=== PATIENT | male | born 1955 | race Caucasian/White ===

== ENCOUNTER 2017-04-23 19:11 | Emergency (ER) | payer BC, MEDICARE, OTHER ==
[~2017-04-23] VITALS: Ht 182.9 cm; Wt 139.0 kg
[~2017-04-23 19:11] MED LIST: ATEN50TA PO; ATOR20TA15 PO; HYDR1CAP; HYDR25TA5 PO; LISI-519 PO; OXYC1TAB35 PO; PARO40TA2 PO
[2017-04-23] MEDS ORDERED: IOHEXOL 350 MG/ML 10 ML VIAL (for RAD DIAG) IVCONTRAST ONE (19:12)
[2017-04-23 19:13] VITALS: BP 137/77; PULSE 71; RESP 20; TEMP 98.9; O2SAT 96
[2017-04-23 19:25] VITALS: BP 141/75; PULSE 67; RESP 18; O2SAT 96
[2017-04-23] MEDS ORDERED: HYDR1CAP PO (19:28)
[2017-04-23] MEDS ORDERED: SODIUM CHLOR 0.9% 1000 ML INJ 1,000 ML IV SCH (19:29)
[2017-04-23] MEDS ORDERED: MORPHINE SULFATE 4 MG/ML INJ IV PUSH ONE (19:30)
[2017-04-23] MEDS ORDERED: ONDANSETRON HCL 4 MG/2 ML VIAL IVP ONE (19:30)
[2017-04-23] MEDS ORDERED: MORPHINE SULFATE 8 MG/ML INJ IV PUSH ONE (19:45)
[2017-04-23 20:01] LABS: CHLORIDE 102 MEQ/L (98-107); POTASSIUM 3.8 MEQ/L (3.5-5.1); SODIUM (NA) 138 MEQ/L (136-145)
[2017-04-23 20:04] LABS: AUTOMATED NEUTROPHIL # 3.3 TH/MM3 (1.8-7.7); BASOPHIL % 0.4 % (0.0-2.0); EOSINOPHIL # 0.3 TH/MM3 (0-0.4); EOSINOPHIL % 4.9 % (0.0-4.0); HEMATOCRIT 38.3 % (39.0-51.0); HEMO FLAGS DIFF FINAL; LYMPH % 34.3 % (9.0-44.0); LYMPHOCYTE # 2.2 TH/MM3 (1.0-4.8); MEAN CELL VOLUME 89.6 FL (80.0-100.0); MEAN CORPUSCULAR HEMOGLOBIN 30.4 PG (27.0-34.0); MEAN CORPUSCULAR HGB CONC 33.9 % (32.0-36.0); MONO % 7.7 % (0.0-8.0); NEUT % 52.7 % (16.0-70.0); PLATELET COUNT 226 TH/MM3 (150-450); RED BLOOD COUNT 4.28 MIL/MM3 (4.50-5.90); RED CELL DISTRIBUTION WIDTH 13.4 % (11.6-17.2); WHITE BLOOD COUNT 6.3 TH/MM3 (4.0-11.0)
[2017-04-23 20:05] LABS: ANION GAP 5 MEQ/L (5-15); BICARBONATE 31.4 MEQ/L (21.0-32.0); BLOOD UREA NITROGEN 13 MG/DL (7-18)
[2017-04-23 20:06] LABS: APTT (PATIENT) 26.4 SEC (24.3-30.1); INTERNATIONAL NORMALIZED RATIO 0.9 RATIO
[2017-04-23 20:08] LABS: ALT (GPT) 38 U/L (12-78); AST (GOT) 21 U/L (15-37); GLOMERULAR FILTRATION RATE 48 ML/MIN (>89)
[2017-04-23 20:09] LABS: TOTAL BILIRUBIN ADULT 0.2 MG/DL (0.2-1.0)
[2017-04-23 20:10] LABS: ALKALINE PHOSPHATASE 57 U/L (45-117)
[2017-04-23 20:20] VITALS: BP 116/60; PULSE 64; RESP 18; O2SAT 96
--- NOTE | 2017-04-23 20:51 | PD ---
HPI . RUQ abdominal pain x 1 week. Chief Complaint: Abdominal Pain Time Seen by Provider: 19:29 Travel History International Travel<30 days: No Contact w/Intl Traveler<30days: No Traveled to known affect area: No History of Present Illness HPI Pt is a 62yo Male who presents to the ED with RUQ abdominal pain x 1wk. Pt describes the pain as "jolting or electrical" with 9/10 severity. The pain waxes and wanes. It is not exacerbated or associated with eating. The pain is localized to the RUQ and somewhat radiates laterally and posteriorly. Pt describes previous episodes of this pain and has had w/u in the past, but states that this pain that he has currently is worse. 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 Pt denies nsaid use, diarrhea, dysuria, but also mentions constipation and decreased sleep and sporadic episodes of emesis. PSurgHx is significant for cholecystectomy. He is unable to sleep due to pain. PFSH Past Medical History Arthritis: Yes Anxiety: Yes Depression: Yes Heart Rhythm Problems: No Cancer: Yes (BASAL NASAL CANCER) Cardiovascular Problems: Yes (HTN) High Cholesterol: Yes Chemotherapy: No Diabetes: Yes Patient Takes Glucophage: No Diminished Hearing: No Endocrine: No Gastrointestinal Disorders: Yes (ACID REFLUX, GASTRIC IRRITATION) Glaucoma: No Genitourinary: No Hepatitis: No Hiatal Hernia: No Hypertension: Yes Immune Disorder: No Kidney Stones: Yes Musculoskeletal: Yes (CHRONIC LOWER BACK PAIN) Neurologic: Yes (NEUROPATHY HANDS AND FEET, HX TEMPORARY PARALYSIS) Psychiatric: Yes (ANXITY/DEPRESSION) Reproductive: No Respiratory: Yes (ALLERGIES, SINUS ISSUES) Integumentary: Yes (PSORIASIS) Immunizations Current: Yes Radiation Therapy: No Thyroid Disease: No Tetanus Vaccination: > 5 Years Influenza Vaccination: No Past Surgical History Abdominal Surgery: Yes (CHOLECYSTECTOMY) AICD: No Arteriovenous Shunt: No Body Medical Devices: NONE Cardiac Surgery: No Cholecystectomy: Yes Ear Surgery: No Endocrine Surgery: No Eye Surgery: No Genitourinary Surgery: Yes (REPAIR LEFT TESTICULAR HYDROCELE) Insulin Pump: No Joint Replacement: No Neurologic Surgery: Yes (2 LUMBAR SURGERY FOR DISCS) Oral Surgery: No Pacemaker: No Thoracic Surgery: No Other Surgery: Yes (LITOTRIPSEY, HNP,right elbow,CA from face, flap surg x2) Social History Alcohol Use: No Tobacco Use: No (QUIT 1979) Substance Use: No Allergies-Medications (Allergen,Severity, Reaction): Coded Allergies: No Known Allergies (Verified Adverse Reaction, Unknown, 04/23/17) Reported Meds & Prescriptions Reported Meds & Active Scripts Active Atorvastatin (Atorvastatin Calcium) 20 Mg Tab 20 Mg PO HS Lisinopril 5 Mg Tab 5 Mg PO DAILY Hydrochlorothiazide 25 Mg Tab 25 Mg PO DAILY Paroxetine (Paroxetine HCl) 40 Mg Tab 40 Mg PO DAILY Atenolol 50 Mg Tab 50 Mg PO DAILY Reported Zohydro ER (Hydrocodone ER) 40 Mg Caper 1 Tab PO Q12HR Oxycodone-Acetaminophen 7.5-325 mg Tab 1 Tab PO Q8HR PRN Review of Systems Except as stated in HPI: all other systems reviewed are Neg Eyes: No: Diploplia, Blurred Vision, Photophobia, Drainage, Redness, Foreign Body Sensation, Pain, Tearing, Blind Spots, Visual changes, Blindness, Other HENT: No: Headaches, Vertigo, Lightheadedness, Sore Throat, Rhinitis, Rhinorrhea, Congestion, Nosebleed, Neck Stiffness, Neck Pain, Masses, Gingival Bleeding, Dental Difficulties, Ear Discharge, Earache, Other Cardiovascular: No: Chest Pain or Discomfort, Palpitations, Irregular Rhythm, Tachycardia, Diaphoresis, Syncope, Dyspnea on exertion, Varicosities, Edema, Cyanosis, Varicosities, Phlebitis, Claudication, Other Respiratory: No: Cough, Shortness of Breath, Wheezing, Sneezing, Orthopnea, Hemoptysis, Stridor, Night Sweats, Pleuritic Pain, Other Gastrointestinal: Positive: Nausea, Vomiting, Abdominal Pain, Constipation Genitourinary: No: Urgency, Frequency, Dysuria, Nocturia, Hematuria, Decreased Urinary Output, Oliguria, Hesitancy, Dribbling, Incontinence, Pelvic Pain, Flank Pain, Dyspareunia, Discharge, Dysmenorrhea, Menorrhagia, Metorrhagia, Vaginal Bleeding, Other Musculoskeletal: Positive: Myalgias, Cramping, Pain Skin: No Rash, No Itching, No Dryness, No Lumps, No Hives, No Change in Pigmentation, No Change in nails, No Alopecia, No Lesions, No Breast Lumps, No Breast Tenderness, No Breast Swelling, No Other Neurologic: Positive: Sensory Disturbance Psychiatric: No: Anxiety, Depression, Suicidal Ideations, Disorder of Thought, Mood Disorder, Substance Abuse, Homicidal Ideation, Other Endocrine: No: Heat Intolerance, Cold Intolerance, Polyuria, Polydipsia, Other Hematologic/Lymphatic: No: Easy Bruising, Lymph Node Enlargement, Other Physical Exam Narrative GENERAL: Alert, awake and oriented, moderate distress HEAD: atraumatic, normocephalic SKIN: warm, dry, good color and turgor. no signs of cyanosis or dehydration. NECK:supple w/o lymphadenopathy CV: RRR normal heart sounds RESPIRATORY: CTA bilat, no rales, wheezes, or rhonchi. ABDOMEN: TTP of RUQ and R oblique area. negative fluid wave. negative succussion splash. involuntary guarding and rebound on R side. somewhat distended abdomen. exam for organomegaly was somewhat limited due to guarding. NEURO: nonfocal. PSYCH: appropriate mood and affect. Data Data Last Documented VS Vital Signs Date Time Temp Pulse Resp B/P (MAP) Pulse Ox O2 Delivery O2 Flow Rate FiO2 04/23/17 20:20 64 18 116/60 (78) 96 Room Air 04/23/17 19:13 98.9 Orders Orders Complete Blood Count With Diff (04/23/17:29) Comprehensive Metabolic Panel (04/23/17:29) Lipase (04/23/17:29) Lactic Acid (04/23/17:29) Prothrombin Time / Inr (Pt) (04/23/17:) Act Partial Throm Time (Ptt) (04/23/17:29) Ct Abd/Pel W Iv Contrast(Rout) (04/23/17 19:29) Iv Access Insert/Monitor (04/23/17:29) Ecg Monitoring (04/23/17:) Oximetry (04/23/17:29) Morphine Inj (Morphine Inj) (04/23/17 19:30) Ondansetron Inj (Zofran Inj) (04/23/17 19:30) Sodium Chlor 0.9% 1000 Ml Inj (Ns 1000 M (04/23/17 19:29) Electrocardiogram (04/23/17:29) Troponin I (04/23/17 19:29) Morphine Inj (Morphine Inj) (04/23/17 19:45) Urinalysis - C+S If Indicated (04/23/17 20:18) Iohexol 350 Inj (Omnipaque 350 Inj) (04/23/17 19:12) Hydromorphone Pf Inj (Dilaudid Pf Inj) (04/23/17 21:15) Labs Laboratory Tests Test 04/23/17 19:40 04/23/17 20:45 White Blood Count 6.3 TH/MM3 Red Blood Count 4.28 MIL/MM3 Hemoglobin 13.0 GM/DL Hematocrit 38.3 % Mean Corpuscular Volume 89.6 FL Mean Corpuscular Hemoglobin 30.4 PG Mean Corpuscular Hemoglobin Concent 33.9 % Red Cell Distribution Width 13.4 % Platelet Count 226 TH/MM3 Mean Platelet Volume 8.0 FL Neutrophils (%) (Auto) 52.7 % Lymphocytes (%) (Auto) 34.3 % Monocytes (%) (Auto) 7.7 % Eosinophils (%) (Auto) 4.9 % Basophils (%) (Auto) 0.4 % Neutrophils # (Auto) 3.3 TH/MM3 Lymphocytes # (Auto) 2.2 TH/MM3 Monocytes # (Auto) 0.5 TH/MM3 Eosinophils # (Auto) 0.3 TH/MM3 Basophils # (Auto) 0.0 TH/MM3 CBC Comment DIFF FINAL Differential Comment Prothrombin Time 10.0 SEC Prothromb Time International Ratio 0.9 RATIO Activated Partial Thromboplast Time 26.4 SEC Blood Urea Nitrogen 13 MG/DL Creatinine 1.50 MG/DL Random Glucose 183 MG/DL Total Protein 7.4 GM/DL Albumin 3.7 GM/DL Calcium Level 8.8 MG/DL Alkaline Phosphatase 57 U/L Aspartate Amino Transf (AST/SGOT) 21 U/L Alanine Aminotransferase (ALT/SGPT) 38 U/L Total Bilirubin 0.2 MG/DL Sodium Level 138 MEQ/L Potassium Level 3.8 MEQ/L Chloride Level 102 MEQ/L Carbon Dioxide Level 31.4 MEQ/L Anion Gap 5 MEQ/L Estimat Glomerular Filtration Rate 48 ML/MIN Lactic Acid Level 1.4 mmol/L Troponin I LESS THAN 0.02 NG/ML Lipase 219 U/L Urine Color YELLOW Urine Turbidity CLEAR Urine pH 7.0 Urine Specific Counce 1.020 Urine Protein NEG mg/dL Urine Glucose (UA) NEG mg/dL Urine Ketones TRACE mg/dL Urine Occult Blood NEG Urine Nitrite NEG Urine Bilirubin NEG Urine Leukocyte Esterase NEG Urine Squamous Epithelial Cells 0-5 /hpf Microscopic Urinalysis Comment CULT NOT INDICATED MDM Medical Decision Making Medical Screen Exam Complete: Yes Emergency Medical Condition: Yes Differential Diagnosis Differential diagnosis of abdominal pain includes but is not limited to gastritis, pancreatitis, hepatitis, gastroenteritis, gallbladder disease, constipation, urinary retention, UTI, peptic ulcer disease, diverticulitis or appendicitis Narrative Course This patient presents with right-sided abdominal pain. He has had a previous cholecystectomy. He has had this pain before and the etiology of the pain has not been determined. CBC & BMP Diagram 04/23/17 19:40 Total Protein 7.4, Albumin 3.7, Calcium Level 8.8, Alkaline Phosphatase 57, Aspartate Amino Transf (AST/SGOT) 21, Alanine Aminotransferase (ALT/SGPT) 38, Total Bilirubin 0.[address]: 1. No acute abnormality. 2. Small bilateral nonobstructing renal stones. 3. Hepatic steatosis. 4. Prior cholecystectomy. No etiology for this patient's abdominal pain has been found. The history, exam, diagnostic testing, and current condition do not suggest any significant pathology to warrant further testing, continued ED treatment, admission, or surgical evaluation at this point. No EMC was found. The patient 's condition is stable and appropriate for discharge. Diagnosis Primary Impression: Abdominal pain Qualified Codes: R10.11 - Right upper quadrant pain Patient Instructions: Abdominal Pain (ED), General Instructions, Narcotic given in the ED Scripts Gabapentin (Gabapentin) 300 Mg Cap 300 MG PO TID, #90 CAP 0 Refills Prov: Kaila Gray MD 04/23/17 Disposition: 01 DISCHARGE HOME Condition: Stable Kaila Gray MD Apr 23, 2017 20:51
[2017-04-23 20:58] LABS: BLOOD, URINE NEG (NEG); GLUCOSE,URINE NEG (NEG); KETONE, URINE TRACE mg/dL (NEG); NITRITE,URINE NEG (NEG)
[2017-04-23 21:10] LABS: URINE COLOR YELLOW (YELLW/STRAW)
[2017-04-23 21:11] LABS: COMMENT (UR) CULT NOT INDICATED; CULTURE IF INDICATED CULT NOT INDICATED; SQUAMOUS EPITHELIAL CELL URINE 0-5 /hpf (0-5)
[2017-04-23] MEDS ORDERED: HYDROmorphone HCL PF 2 MG/ML VIAL IV PUSH ONE (21:15)
[2017-04-23 21:18] VITALS: BP 140/73; PULSE 71; RESP 18; O2SAT 95
--- NOTE | 2017-04-23 21:23 | RADRPT ---
EXAM DATE/TIME: 04/23/2017 20:36 [facility] COMPARISON: CT ABDOMEN & PELVIS W CONTRAST, June 26, 2010, 16:55. INDICATIONS : Right upper abdomen pain with nausea. IV CONTRAST: 71 cc Omnipaque 350 (iohexol) IV ORAL CONTRAST: No oral contrast ingested. RADIATION DOSE: 22.29 CTDIvol (mGy) MEDICAL HISTORY : Hypertension. Renal calculi. Diabetes SURGICAL HISTORY : Cholecystectomy. Orthopedic ENCOUNTER: Initial ACUITY: 1 week PAIN SCALE: 9/10 LOCATION: Right upper quadrant Abdomen TECHNIQUE: Volumetric scanning of the abdomen and pelvis was performed. Using automated exposure control and ad justment of the mA and/or kV according to patient size, radiation dose was kept as low as reasonably achievable to obtain optimal diagnostic quality images. DICOM format image data is available electro nically for review and comparison. FINDINGS: LOWER LUNGS: Long-term stable scarring involving the left lung base. LIVER: The liver is diffusely low in density. No mass or ductal dilatation. Portal vein is patent. Gallbladd er is surgically absent. SPLEEN: Normal size without lesion. Small granulomatous calcifications. PANCREAS: Within normal limits. KIDNEYS: Normal in size and shape. There is no mass or hydronephrosis. There is a 3 mm nonobstructing left r enal stone. A 1 mm nonobstructing right renal stone. ADRENAL GLANDS: Within normal limits. VASCULAR: There is no aortic aneurysm. BOWEL/MESENTERY: The stomach, small bowel, and colon demonstrate no acute abnormality. There is no free intraperitone al air or fluid. The appendix is normal by CT criteria. ABDOMINAL WALL: Within normal limits. RETROPERITONEUM: There is no lymphadenopathy. BLADDER: No wall thickening or mass. REPRODUCTIVE: Within normal limits. INGUINAL: There is no lymphadenopathy or hernia. MUSCULOSKELETAL: A degenerative lumbar spine. CONCLUSION: 1. No acute abnormality. 2. Small bilateral nonobstructing renal stones. 3. Hepatic steatosis. 4. Prior cholecystectomy. Seth Gasca Jr., MD on April 23, 2017 at 21:18 Board Certified Radiologist. This report was verified electronically.
[2017-04-23] MEDS ORDERED: GABA300C5 PO (21:27)
[2017-04-23 21:30] VITALS: BP 131/80; PULSE 68; RESP 18; O2SAT 94
[2017-04-23 21:50] VITALS: BP 136/73; PULSE 65; RESP 18; O2SAT 97
--- NOTE | 2017-04-24 12:10 | EKG ---
Date Performed: 04/23/2017 Time Performed: 19:40:22 PTAGE: 62 years EKG: Sinus rhythm NORMAL ECG PREVIOUS TRACING : 12/30/2015 10.55 Compared to prior tracing no significant change DOCTOR: Naman Russ Interpretating Date/Time 04/24/2017 12:09:25
== END 2017-04-23 22:04 | disposition home or self-care (01) ==
LOC: PHED 19:11
DX: R10.11 Right upper quadrant pain (principal); E11.9 Type 2 diabetes mellitus without complications; I10 Essential (primary) hypertension; E78.00 Pure hypercholesterolemia, unspecified; Z87.39 Personal history of other diseases of the musculoskeletal system and connective tissue; Z86.59 Personal history of other mental and behavioral disorders; Z87.19 Personal history of other diseases of the digestive system; Z87.442 Personal history of urinary calculi; Z86.69 Personal history of other diseases of the nervous system and sense organs; Z87.2 Personal history of diseases of the skin and subcutaneous tissue; Z85.828 Personal history of other malignant neoplasm of skin
CPT/HCPCS: 74177; 80053; 81001; 83605; 83690; 84484; 85025; 85610; 85730; 93005; 96361; 96374; 96375; 99285; J1170; J2270; J2405; J7030; Q9967